=== PATIENT | male | born 1970 | race African-American/Black ===

== ENCOUNTER 2021-06-03 04:31 | Day surgery (SDC) | payer BC ==
[2021-06-01 17:06] VITALS: BMI 30.8
[2021-06-03] MEDS ORDERED: LIDOCAINE HCL/PF 1% SDV 5ML VIAL ONE (07:31)
[2021-06-03] MEDS ORDERED: DEXAMETHASONE SOD PHOSPHATE 4 MG/1 ML VIAL ONE (07:31)
[2021-06-03] MEDS ORDERED: IOHEXOL 180 MG/1 ML ML IJ ONE (13:44)
[2021-06-03] MEDS ORDERED: DEXAMETHASONE SOD PHOSPHATE 10 MG/1 ML VIAL IVPUSH ONE (13:45)
[2021-06-03] MEDS ORDERED: LIDOCAINE HCL 1% PRESERVATIVE FREE - 30ML VIAL IJ ONE (13:45)
[2021-06-03 15:00] VITALS: BP 127/76; PULSE 54; TEMP 97
== END 2021-06-03 14:05 | disposition home or self-care (01) ==
LOC: JASU-SURG 04:31
PROVIDERS: ATTEND Pain Medicine Pain Medicine
PROC: 3E0S33Z Introduction of Anti-inflammatory into Epidural Space, Percutaneous Approach (ICD-10-PCS; 2021-06-03)
PROC: 3E0S3BZ Introduction of Anesthetic Agent into Epidural Space, Percutaneous Approach (ICD-10-PCS; principal; 2021-06-03 10:15)
DX: M54.16 Radiculopathy, lumbar region (principal)
CPT/HCPCS: 76000-TC-FY; J1100